=== PATIENT | male | born 1995 | race Caucasian/White ===

== ENCOUNTER 2021-04-30 22:11 | Emergency (ER) | payer OTHER ==
[~2021-04-30] VITALS: Ht 172.7 cm; Wt 72.7 kg
--- NOTE | 2021-04-30 22:16 | PHYS DOC ---
General Adult EDM: Chief Complaint: LACERATION/AVULSION HPI: HPI: Patient is a 26 year old male with past medical history of seizures presents via ems for evaluation. Patient is an inmate in [place]-- was found down in his cell with altered mental status. Patient with GCS 10 E(4)V(1)M(5) Patient with c-collar in place. He has a laceration 2 cm left eyebrow. Patient without any other visible signs of injury. Review of Systems: Review of Systems: History limited due to medical condition Heart Score: C/O Chest Pain: N/A Risk Factors: Risk Factors: DM, Current or recent (<one month) smoker, HTN, HLP, family history of CAD, obesity. Risk Scores: Score 0 - 3: 2.5% MACE over next 6 weeks - Discharge Home Score 4 - 6: 20.3% MACE over next 6 weeks - Admit for Clinical Observation Score 7 - 10: 72.7% MACE over next 6 weeks - Early Invasive Strategies Physical Exam: PE: General: alert, no acute distress. Skin: warm, dry and intact. Laceration 2 cm left eyebrow HENT: bilateral external ears normal, oropharynx moist, nose normal. Head:: Normocephalic, Neck: Trachea midline. C-collar in place Eyes: EOMI, Normal conjunctiva, No drainage CARDIOVASCULAR: Regular rate and rhythm RESPIRATORY: No respiratory distress Back: Full range of motion. Skin: Warm, dry, no erythema, no rash. MUSCULOSKELETAL: Full range of motion of bilateral upper and lower extremities. GASTROINTESTINAL: Abdomen soft without rebound or guarding. EKG: EKG: [] Radiology/Procedures: Radiology/Procedures: [] Impression: FINDINGS: Head: No intracranial hemorrhage. No midline shift. Basal cisterns patents. Ventricles and sulci are within normal limits. No acute osseous abnormality. Orbits and paranasal sinuses unremarkable. Cervical: No definite acute fracture. No dislocation. No evidence of perivertebral hematoma. IMPRESSION: * No acute intracranial hemorrhage. * No acute fracture or dislocation of the cervical spine. Course & Med Decision Making: Course & Med Decision Making Pertinent Labs and Imaging studies reviewed. (See chart for details) [] Received general anesthesia with lidocaine 1% 5 cc used once successful anesthesia was achieved 6 3.0 nylon simple interrupted sutures placed. Patient tolerated procedure no complications. Dragon Disclaimer: Dragon Disclaimer: This electronic medical record was generated, in whole or in part, using a voice recognition dictation system. Departure Departure Impression: Primary Impression: Altered mental status Additional Impressions: Facial laceration Seizure Disposition: 01 HOME / SELF CARE / HOMELESS Patient Instructions: Facial Laceration, Seizure, Adult BETH LOPEZ I DO Apr 30, 2021 22:16
[2021-04-30] MEDS ORDERED: LIDOCAINE 1% PF 5 ML VIAL. INJ ONE (23:00)
--- NOTE | 2021-04-30 23:20 | RAD ---
INDICATION: Reason: altered mental status, TRAUMA COMPARISON: None. TECHNIQUE: Axial CT images obtained through the head and cervical spine without intravenous contrast. Coronal a nd sagittal reformats processed of cervical spine. One or more of the following individualized dose reduction techniques were utilized for this examinat ion: 1. Automated exposure control; 2. Adjustment of the mA and/or kV according to patient size; 3 . Use of iterative reconstruction technique. FINDINGS: Head: No intracranial hemorrhage. No midline shift. Basal cisterns patents. Ventricles and sulci are within normal limits. No acute osseous abnormality. Orbits and paranasal sinuses unremarkable. Cervical: No definite acute fracture. No dislocation. No evidence of perivertebral hematoma. IMPRESSION: * No acute intracranial hemorrhage. * No acute fracture or dislocation of the cervical spine. Electronically signed by: Saulo Trujillo MD (04/30/2021 11:18 PM) [id number]
[2021-05-01 01:03] LABS: BASO % 0 % (0-3); EOS % 0 % (0-3); HEMATOCRIT 49.1 % (39.0-53.0); HEMOGLOBIN 16.4 g/dL (13.0-17.5); LYMPH # 1.3 x10^3/uL (1.0-4.8); LYMPH % 8 % (24-48); MEAN CORPUSCULAR HEMOGLOBIN 30 pg (25-35); MEAN CORPUSCULAR HGB CONC 33 g/dL (31-37); MEAN CORPUSCULAR VOLUME 90 fL (79-100); MONO # 1.3 x10^3/uL (0.0-1.1); MONO % 8 % (0-9); NEUT # 12.7 x10^3/uL (1.8-7.7); NEUT % 83 % (31-73); PLATELET COUNT 177 x10^3/uL (140-400); RED BLOOD COUNT 5.45 x10^6/uL (4.30-5.70); RED CELL DISTRIBUTION WIDTH 13.5 % (11.5-14.5); WHITE BLOOD COUNT 15.3 x10^3/uL (4.0-11.0)
[2021-05-01 01:06] VITALS: BP 129/79
[2021-05-01 01:12] LABS: CALCIUM 9.1 mg/dL (8.5-10.1); CREATININE 1.2 mg/dL (0.7-1.3); GFR 74.4; POTASSIUM 4.4 mmol/L (3.5-5.1)
[2021-05-01 01:18] LABS: ALBUMIN/GLOBULIN RATIO 1.3 (1.0-1.7); TOTAL BILIRUBIN 0.2 mg/dL (0.2-1.0)
[2021-05-01] MEDS ORDERED: ACETAMINOPHEN 325 MG TABLET. PO ONE (01:30)
[2021-05-01 01:40] LABS: % BANDS 1 % (0-9); % BASOS 1 % (0-3); % LYMPHS 14 % (24-48); % MONOS 10 % (0-10); % SEGS 74 % (35-66); PLT ESTIMATE ADEQUATE (ADEQUATE)
== END 2021-05-01 01:30 | disposition home or self-care (01) ==
LOC: EEVIPCON 22:11 → ER 22:11
DX: S01.112A Laceration without foreign body of left eyelid and periocular area, initial encounter (principal); R41.82 Altered mental status, unspecified; R56.9 Unspecified convulsions; Y28.8XXA Contact with other sharp object, undetermined intent, initial encounter; Y93.89 Activity, other specified; Y92.89 Other specified places as the place of occurrence of the external cause; Y99.8 Other external cause status
CPT/HCPCS: 12011; 36415; 70450; 72125; 80053; 85007; 85025; 99285; G0480